=== PATIENT | male | born 1940 | race Caucasian/White ===

== ENCOUNTER 2023-11-22 16:32 | Inpatient (IN) | payer OTHER ==
[2023-11-22 17:06] VITALS: BMI 23.5
[2023-11-22] MEDS ORDERED: ACETAMINOPHEN INJECTION 100 ML ONE (17:35)
[2023-11-22] MEDS ORDERED: PIPERACILLIN/TAZOB 3.375 GM 3.375 GM/50 ML BAG IVPB ONE (17:35)
[2023-11-22 17:38] LABS: VENOUS BASE EXCESS 3.7 mmol/L (-2-2); VENOUS O2 SATURATION 72.1 % (70-80); VENOUS PCO2 39.5 mmHg (38-52); VENOUS PH 7.463 (7.310-7.410)
[2023-11-22 17:45] LABS: HEMATOCRIT 51.5 % (35.4-49); HEMOGLOBIN 17.5 GM/dL (11.7-16.9); MCH 30.7 pg (25.7-33.7); MCHC 33.9 g/dl (32.0-35.9); MEAN CELL VOLUME 90.5 fl (80-96); MEAN PLT VOLUME 8.5 fl (7.5-11.1); PLATELET COUNT 164 10^3/uL (134-434); RDW 15.4 % (11.9-15.9); WHITE BLOOD COUNT 12.7 K/mm3 (4.0-10.0)
[2023-11-22] MEDS: ACETAMINOPHEN 1000 MG/100 ML BAG IVPB ONE (17:49)
[2023-11-22] MEDS ORDERED: PIPERACILLIN/TAZOB 4.5 GM 4.5 GM/100 ML BAG IVPB ONE (17:49)
[2023-11-22 17:51] LABS: INR 1.05 (0.83-1.09); PROTHROMBIN TIME (PATIENT) 12.1 SEC (9.7-13.0)
[2023-11-22] MEDS: PIPERACILLIN/TAZOB 4.5 GM 4.5 GM in DEXTROSE 5%-WATER 100 ML IVPB ONE (17:52)
[2023-11-22] MEDS: SODIUM CHLORIDE 0.9% 1000 ML INFUS.BAG IV ONE (17:52)
[2023-11-22 17:55] LABS: POTASSIUM 4.1 mmol/L (3.5-5.1)
[2023-11-22 17:57] LABS: ALBUMIN 3.9 g/dl (3.4-5.0); CALCIUM 9.7 mg/dL (8.5-10.1)
[2023-11-22 17:58] LABS: BLOOD UREA NITROGEN 24.9 mg/dL (7-18)
[2023-11-22 18:01] LABS: CREATININE 1.6 mg/dL (0.55-1.3)
[2023-11-22 18:03] LABS: BILIRUBIN,TOTAL 1.1 mg/dL (0.2-1); TOT PROT 7.5 g/dl (6.4-8.2)
[2023-11-22 18:06] LABS: URINE APPEARANCE CLEAR; URINE BILIRUBIN NEGATIVE (NEGATIVE); URINE COLOR YELLOW; URINE GLUCOSE (UA) NEGATIVE (NEGATIVE); URINE KETONE NEGATIVE (NEGATIVE); URINE LEUK ESTERASE NEGATIVE (NEGATIVE); URINE NITRITE NEGATIVE (NEGATIVE); URINE PROTEIN TRACE (NEGATIVE); URINE UROBILINOGEN 0.2 mg/dL (0.2-1.0)
[2023-11-22] MEDS ORDERED: VANCOMYCIN 1 GRAM (PRE-DOCKED) 1,000 MG/250 ML BAG IVPB ONE (18:12)
[2023-11-22 18:23] LABS: LACTIC ACID 3.1 mmol/L (0.4-2.0)
[2023-11-22 18:57] LABS: ANISOCYTOSIS 2+; MACROCYTOSIS 1+
[2023-11-22] MEDS: VANCOMYCIN 1,000 MG in DEXTROSE 5%-WATER - 250 ML IVPB ONE (19:14)
[2023-11-22] MEDS: SODIUM CHLORIDE 1,000 ML IV STA (19:56)
[2023-11-22 20:26] LABS: LACTIC ACID 3.6 mmol/L (0.4-2.0)
[2023-11-22] MEDS ORDERED: HEPARIN NA (PORCINE) 5,000 UNITS/ML 1ML VIAL ONE (21:43)
[2023-11-22] MEDS: HEPARIN NA (PORCINE) 5,000 UNITS/ML 1ML VIAL SQ SCH (21:47)
[2023-11-23] MEDS ORDERED: clonazePAM 0.5 MG ODT TABLETS SL PRN (03:38)
[2023-11-23] MEDS ORDERED: FLU VACCINE (FLULAVAL) PF 45 MCG/0.5 ML SYRINGE 2024-2025 IM ONE (03:39)
[2023-11-23] MEDS ORDERED: HEPARIN NA (PORCINE) 5,000 UNITS/ML 1ML VIAL ONE (05:31)
[2023-11-23] MEDS ORDERED: PIPERACILLIN/TAZOB 3.375 GM 3.375 GM in DEXTROSE 5%-WATER - 50 ML IVPB SCH (06:15)
[2023-11-23] MEDS ORDERED: PIPERACILLIN/TAZOB 2.25 GM 2.25 GM/50 ML BAG IVPB ONE ×2 (06:37→06:38)
[2023-11-23] MEDS: PIPERACILLIN/TAZOB 2.25 GM 2.25 GM in DEXTROSE 5%-WATER - 50 ML IVPB SCH (06:41)
[2023-11-23 08:14] LABS: HEMATOCRIT 47.7 % (35.4-49); HEMOGLOBIN 15.7 GM/dL (11.7-16.9); MCH 30.2 pg (25.7-33.7); MCHC 32.9 g/dl (32.0-35.9); MEAN CELL VOLUME 91.7 fl (80-96); MEAN PLT VOLUME 8.7 fl (7.5-11.1); PLATELET COUNT 149 10^3/uL (134-434); RDW 15.8 % (11.9-15.9); WHITE BLOOD COUNT 13.4 K/mm3 (4.0-10.0)
[2023-11-23 08:28] LABS: POTASSIUM 3.4 mmol/L (3.5-5.1)
[2023-11-23 08:35] LABS: ALBUMIN 3.2 g/dl (3.4-5.0); BLOOD UREA NITROGEN 19.2 mg/dL (7-18); CALCIUM 8.4 mg/dL (8.5-10.1); MAGNESIUM 1.8 mg/dL (1.8-2.4)
[2023-11-23 08:39] LABS: CREATININE 1.3 mg/dL (0.55-1.3)
[2023-11-23 08:40] LABS: BILIRUBIN,TOTAL 1.3 mg/dL (0.2-1); TOT PROT 6.2 g/dl (6.4-8.2)
[2023-11-23] MEDS: VALSARTAN 160 MG TABLET PO SCH (10:50)
[2023-11-23] MEDS: amLODIPine BESYLATE 10 MG TABLET (FP) PO SCH (10:50)
[2023-11-23] MEDS: HYDROCHLOROTHIAZIDE 12.5 MG CAPSULE (FP) PO SCH (10:50)
[2023-11-23] MEDS: POTASSIUM CHLORIDE ORAL LIQUID 20 MEQ/15 ML PO ONE (13:11)
[2023-11-23] MEDS: SODIUM CHLORIDE 1,000 ML IV SCH (13:11)
[2023-11-23 17:51] LABS: METHADONE, UR NEGATIVE (NEGATIVE); URINE BENZODIAZEPINES NEGATIVE (NEGATIVE)
[2023-11-23 17:52] LABS: COCAINE, UR POSITIVE (NEGATIVE); OPIATES, URI NEGATIVE (NEGATIVE); PHENCYCLIDINE,URINE NEGATIVE (NEGATIVE); URINE AMPHETAMINES NEGATIVE (NEGATIVE); URINE BARBITURATES NEGATIVE (NEGATIVE)
[2023-11-23] MEDS: MELATONIN 5 MG TABLETS PO ONE (21:34)
[2023-11-23] MEDS: ATORVASTATIN CA 10 MG TABLET (FP) PO SCH (21:35)
[2023-11-24] MEDS: PIPERACILLIN/TAZOB 2.25 GM 2.25 GM/50 ML BAG IVPB SCH (01:53)
[2023-11-24] MEDS ORDERED: PIPERACILLIN/TAZOB 2.25 GM 2.25 GM in DEXTROSE 5%-WATER - 50 ML IVPB SCH (10:00)
[2023-11-24 10:37] LABS: BASO % 0.3 % (0-2.0); EOS % 0.5 % (0-4.5); HEMATOCRIT 47.9 % (35.4-49); LYMPH % 10.6 % (8-40); MCH 30.5 pg (25.7-33.7); MCHC 33.3 g/dl (32.0-35.9); MEAN CELL VOLUME 91.6 fl (80-96); MEAN PLT VOLUME 8.6 fl (7.5-11.1); MONO % 6.2 % (3.8-10.2); NEUT % 82.4 % (42.8-82.8); PLATELET COUNT 133 10^3/uL (134-434); RBC 5.23 M/mm3 (4.00-5.60); RDW 15.7 % (11.9-15.9); WHITE BLOOD COUNT 8.1 K/mm3 (4.0-10.0)
[2023-11-24 11:39] LABS: POTASSIUM 3.3 mmol/L (3.5-5.1)
[2023-11-24 11:42] LABS: CALCIUM 8.2 mg/dL (8.5-10.1)
[2023-11-24 11:43] LABS: BLOOD UREA NITROGEN 15.9 mg/dL (7-18)
[2023-11-24 11:46] LABS: CREATININE 1.2 mg/dL (0.55-1.3)
[2023-11-24 11:47] LABS: TOT PROT 6.2 g/dl (6.4-8.2)
[2023-11-24] MEDS: POTASSIUM CHLORIDE ORAL LIQUID 20 MEQ/15 ML PO ONE (16:32)
[2023-11-25] MEDS: MELATONIN 5 MG TABLETS PO ONE (00:08)
[2023-11-25 11:53] LABS: BASO % 0.3 % (0-2.0); EOS % 1.2 % (0-4.5); HEMATOCRIT 48.4 % (35.4-49); HEMOGLOBIN 16.2 GM/dL (11.7-16.9); LYMPH % 16.4 % (8-40); MCH 30.5 pg (25.7-33.7); MCHC 33.6 g/dl (32.0-35.9); MEAN CELL VOLUME 90.7 fl (80-96); MEAN PLT VOLUME 8.9 fl (7.5-11.1); MONO % 6.8 % (3.8-10.2); NEUT % 75.3 % (42.8-82.8); PLATELET COUNT 156 10^3/uL (134-434); RBC 5.33 M/mm3 (4.00-5.60); RDW 15.9 % (11.9-15.9); WHITE BLOOD COUNT 6.1 K/mm3 (4.0-10.0)
[2023-11-25 12:18] LABS: POTASSIUM 3.4 mmol/L (3.5-5.1)
[2023-11-25 12:22] LABS: CALCIUM 8.4 mg/dL (8.5-10.1)
[2023-11-25 12:23] LABS: ALBUMIN 3.2 g/dl (3.4-5.0)
[2023-11-25 12:26] LABS: CREATININE 1.2 mg/dL (0.55-1.3)
[2023-11-25 12:27] LABS: BILIRUBIN,TOTAL 0.8 mg/dL (0.2-1); TOT PROT 6.6 g/dl (6.4-8.2)
[2023-11-25 13:25] LABS: HIV INTERPRETATION NEGATIVE (NEGATIVE)
[2023-11-25] MEDS: POTASSIUM CHLORIDE ORAL LIQUID 20 MEQ/15 ML PO ONE (20:36)
[2023-11-26 09:29] LABS: BASO % 0.5 % (0-2.0); EOS % 1.9 % (0-4.5); HEMATOCRIT 50.3 % (35.4-49); HEMOGLOBIN 17.4 GM/dL (11.7-16.9); LYMPH % 22.6 % (8-40); MCH 31.2 pg (25.7-33.7); MCHC 34.6 g/dl (32.0-35.9); MEAN CELL VOLUME 90.4 fl (80-96); MEAN PLT VOLUME 8.5 fl (7.5-11.1); PLATELET COUNT 178 10^3/uL (134-434); RBC 5.57 M/mm3 (4.00-5.60); RDW 15.4 % (11.9-15.9); WHITE BLOOD COUNT 6.1 K/mm3 (4.0-10.0)
[2023-11-26 09:58] LABS: POTASSIUM 3.9 mmol/L (3.5-5.1)
[2023-11-26 10:10] LABS: BLOOD UREA NITROGEN 27.5 mg/dL (7-18); CALCIUM 9.6 mg/dL (8.5-10.1)
[2023-11-26 10:12] LABS: CREATININE 1.4 mg/dL (0.55-1.3)
[2023-11-26 10:15] VITALS: BP 134/81; PULSE 86; RESP 18; TEMP 98.4
== END 2023-11-26 15:26 | disposition home or self-care (01) | DRG 871 ==
LOC: JER 16:32 → JERBED 19:37 → J5S 11-23 12:17
PROVIDERS: ADMIT Internal Medicine; ATTEND Internal Medicine
DX: A41.89 Other specified sepsis (principal); J18.9 Pneumonia, unspecified organism; N17.9 Acute kidney failure, unspecified; K57.92 Diverticulitis of intestine, part unspecified, without perforation or abscess without bleeding; I10 Essential (primary) hypertension; N40.0 Benign prostatic hyperplasia without lower urinary tract symptoms; D72.829 Elevated white blood cell count, unspecified; E78.5 Hyperlipidemia, unspecified; G47.00 Insomnia, unspecified; F41.9 Anxiety disorder, unspecified; F14.90 Cocaine use, unspecified, uncomplicated; B96.20 Unspecified Escherichia coli [E. coli] as the cause of diseases classified elsewhere
CPT/HCPCS: 0241U-QW; 36415; 70450-TC; 71045-TC-FY; 71275-TC; 74177-TC; 80048; 80053; 80307; 81003; 82803; 82962; 83036; 83605; 83735; 84100; 84484; 85025; 85027; 85610; 85730; 86140; 86704; 86803; 86850; 86900; 86901; 87040; 87086; 87186; 87340; 87389; 87517; 93005; 93010; 93306-TC; 93308; 99285-25; J0131; J1644; Q9967